=== PATIENT | female | born 1950 | race Caucasian/White ===

== ENCOUNTER 2016-11-08 16:03 | Emergency (ER) | payer MEDICARE, OTHER ==
[~2016-11-08 16:03] MED LIST: ALLOPURINOL100 MG PO; APRESOLINE100 MG PO; CARDIZEM CD240 MG PO; CEFTIN500 MG PO; CORDARONE200 MG PO; COZAAR50 MG PO; DUONEB 2.5-0.5M1 AMP PO; LACTINEX1 EACH PO; LASIX40 MG PO; LEVAQUIN750 MG PO; METOLAZONE 5MG T5 M1 PO; NORVASC5 MG PO; OMEPRAZOLE 20MG20 MG PO; OMEPRAZOLE40 MG PO; OXYBUTYNIN CHLO10 MG PO; PREDNISONE 10MG10 MG PO; PRINIVIL20 MG PO; SODIUM BICARBO650 M1 PO; SYNTHROID25 MCG PO; SYNTHROID50 MCG PO; TOPROL XL 50 MG50 MG PO; TOPROL XL100 MG PO; ULTRAM50 MG PO; XARELTO15 MG PO; ZITHROMAX250 MG PO; ZOLOFT100 MG PO
[2016-11-08 17:23] LABS: BASOPHIL 0.4 % (0-2); EOSINOPHIL 6.8 % (0-7); HCT 31.6 % (37.0-47.0); HGB 10.1 g/dl (12.5-16.0); LYMPHOCYTE 16.4 % (15-48); MONOCYTE 7.6 % (0-12); MPV 8.7 fL (6.0-9.5); NEUTROPHIL 68.8 % (41-80); PLT 298 K/uL (150-400); RBC 3.16 M/uL (4.20-5.40); RDW 14.6 % (11.5-14.0); WBC 7.3 K/uL (4.0-10.5)
[2016-11-08 17:43] LABS: LACTIC ACID 0.6 mmol/L (0.5-2.2)
[2016-11-08 17:46] LABS: ALBUMIN 3.8 g/dL (3.4-4.8); BILIRUBIN - TOTAL 0.2 mg/dL (0.1-1.0); CREATININE 1.9 mg/dL (0.5-1.0); GLOBULIN (CALCULATION) 2.2 g/dL (2.2-4.2); POTASSIUM 5.2 mmol/L (3.5-5.1)
[2016-11-08 18:13] LABS: BILIRUBIN NEGATIVE (NEGATIVE); BLOOD 3+ Ery/uL (NEGATIVE); CLARITY CLEAR (CLEAR); COLOR YELLOW (YELLOW); GLUCOSE (U) NORMAL (NORMAL); KETONE (U) NEGATIVE (NEGATIVE); LEUKOCYTES NEGATIVE Leu/uL (NEGATIVE); NITRITE NEGATIVE (NEGATIVE); PROTEIN 2+ mg/dL (NEGATIVE); SPECIFIC GRAVITY 1.025 (1.001-1.030); UROBILINOGEN 0.2 mg/dL (0.2-1.0)
[2016-11-08 18:19] LABS: BACTERIA 1+; SQUAMOUS EPITHELIAL CELLS RARE
[2016-11-08 18:20] LABS: YEAST PRESENT
--- NOTE | 2016-11-09 12:21 | NUR ---
NOTE RECEIVED FROM DR RO TO CALL PATIENT TO TELL HER TO FOLLOW UP WITH PCP. BLOOD CULTURE WITH GRAM POSTITIVE RODS. WAS PRESCRIBED LEVAQUIN AT DISCHARGE. CALLED HOME AND VERIFIED IDENTITY WITH WHO IS POA. INFORMED HIM OF ABOVE AND HE VERBALIZED UNDERSTANDING.
== END 2016-11-08 20:05 | disposition home or self-care (01) ==
LOC: FER 16:03
PROVIDERS: Internal Medicine
DX: J20.9 Acute bronchitis, unspecified (principal); I11.0 Hypertensive heart disease with heart failure; I69.959 Hemiplegia and hemiparesis following unspecified cerebrovascular disease affecting unspecified side; Z88.5 Allergy status to narcotic agent; Z91.040 Latex allergy status; Z79.899 Other long term (current) drug therapy
CPT/HCPCS: 36415; 36600; 71020; 80053; 81001; 82803; 83605; 84484; 85025; 87040; 87077; 93005; 94640; 94664; J2930